=== PATIENT | male | born 1965 | race African-American/Black ===

== ENCOUNTER 2021-03-22 09:01 | Emergency (ER) | payer OTHER, SELFPAY ==
--- NOTE | 2021-03-22 09:06 | ED.EXTPRO ---
HPI - Extremity Problem General Chief complaint: Extremity Injury, Upper Stated complaint: left rm swelling Time Seen by Provider: 03/22/21 09:17 Source: patient and RN notes reviewed Mode of arrival: ambulatory Limitations: no limitations History of Present Illness HPI Narrative: 55-year-old male presents with concern for left elbow pain that radiates down left arm, decreased left meatcutter strength. He denies any injury or trauma. He reports left elbow tenderness to palpation. He denies any known exacerbating or relieving factors. Reports he has a history of gout, originally thought he had gout and has been taking naproxen without relief. Reports symptoms have now evolved to feel differently than his gout attacks. He denies any open skin, warmth. Reports swelling MD Complaint: extremity pain and extremity swelling Related Data Allergies Allergy/AdvReac Type Severity Reaction Status Date / Time Penicillins Allergy Hives Verified 03/22/21 09:20 Review of Systems Review of Systems: CONSTITUTIONAL: Denies malaise, chills, sweats, or fever. CARDIOVASCULAR: Denies chest pain, palpitations, or edema. RESPIRATORY: Denies cough or dyspnea. SKIN: Denies rash or itching, bruising, redness MUSCULOSKELETAL: Reports left elbow pain and tenderness radiating to let down the left arm, decreased meatcutter strength NEUROLOGIC: Denies numbness, weakness All systems reviewed & are unremarkable except as noted in HPI and below PMFSH Comments At time of signature, agree with nursing past medical, surgical, social and family history. There is no relevant family history pertinent to the presenting complaint Exam Narrative: GENERAL: Well-appearing, well-nourished, and in no acute distress. HEAD: Normocephalic, atraumatic. EYES: PERRLA, conjunctivae clear NECK: Supple. CHEST: Speaks in full sentences. No respiratory distress. HEART: Regular rate and rhythm. Normal and equal peripheral pulses. EXTREMITIES: Left elbow, arm, hand, digits have has normal and sensation, normal range of motion. Mild lateral elbow edema without erythema or ecchymosis. Decreased meatcutter strength. Normal sensation with sensitivity to light touch and pain. No point tenderness. Lateral elbow wounds, no skin tenting, no devitalized tissue or atrophy, no trophic changes, no obvious deformity, alignment normal, nearby joints and structures intact. Distal pulses palpable and equal bilaterally, skin warm, dry, pink. Capillary refill less than 3 seconds. SKIN: Warm, dry, no rash. NEURO: Alert and oriented x3. PSYCH: Normal mood and affect Course Course Emergency Course: Patient is aware of diagnosis, understands and agrees to treatment plan. Anticipatory guidance given. Patient agrees to follow-up as directed and is aware of reasons to seek care at the emergency department. Portions of this record may have been created with voice recognition software Vital Signs Vital signs: Vital Signs Temperature 97.5 F L 03/22/21 09:11 Pulse Rate 79 03/22/21 09:11 Respiratory Rate 16 03/22/21 09:11 Blood Pressure 159/81 H 03/22/21 09:11 Pulse Oximetry 98 03/22/21 09:11 Temperature 97.5 F L 03/22/21 09:11 Pulse Rate 79 03/22/21 09:11 Respiratory Rate 16 03/22/21 09:11 Blood Pressure 159/81 H 03/22/21 09:11 Pulse Oximetry 98 03/22/21 09:11 Reviewed. MDM - Extremity (Nontraumatic) MDM Narrative Medical decision making narrative: Exam findings show no acute concerns or changes; patient is non-toxic appearing and is in no distress. Patient is appropriate for outpatient treatment and follow-up. Differential Diagnosis Differential diagnosis: Likely gout, cellulitis and other ( abscess, joint infection, tendontits, musculodkeletal injury) Critical Care Time Critical Care Time Critical Care Time: No Discharge Plan Discharge Clinical Impression: Epicondylitis, lateral, left Patient Disposition: Home, Self-Care Condition: Stable Instructions: Tennis Elbow
[2021-03-22 09:11] VITALS: BP 159/81; PULSE 79; RESP 16; TEMP 36.4; O2SAT 98
== END 2021-03-22 09:35 | disposition home or self-care (01) ==
PROVIDERS: Emergency Provider Nurse Practitioner
DX: M77.12 Lateral epicondylitis, left elbow (principal); I10 Essential (primary) hypertension; M10.9 Gout, unspecified
CPT/HCPCS: 99203; G0463